=== PATIENT | male | born 1990 | race Caucasian/White ===

== ENCOUNTER → 2023-03-20 07:42 | Outpatient (CLI) | payer BC, SELFPAY ==
--- NOTE | ~2023-03-20 | US_ITS ---
Limited Abdominal Sonogram: Real-time sonographic imaging of the right upper quadrant was performed. Clinical History: Abnormal LFTs Findings: The liver appears echogenic, with no evidence of mass lesion or bile duct dilatation. Main portal vein demonstrates normal direction of flow. The gallbladder is absent, compatible prior christiano cystectomy. The common bile duct measures 5 mm. The visualized pancreas, aorta, and IVC are unremark able. Right kidney measures 11.9 cm in length, without evidence for hydronephrosis. Impression: Diffuse fatty infiltration of liver. Status post cholecystectomy. Reviewed, dictated and finalized at location . Impression: Diffuse fatty infiltration of liver. Status post cholecystectomy.
== END ==
PROVIDERS: PCP Internal Medicine; Visit Provider Internal Medicine
DX: R94.5 Abnormal results of liver function studies (principal); Z90.49 Acquired absence of other specified parts of digestive tract; K76.0 Fatty (change of) liver, not elsewhere classified
CPT/HCPCS: 76705

== ENCOUNTER 2024-02-12 08:19 | Observation (INO) | payer BC, SELFPAY ==
[2024-02-12] VITALS (25 sets, daily range): BP systolic 92–144; BP diastolic 50–96; PULSE 100–152; RESP 11–28; TEMP 36.2–37.1; O2SAT 98–100; BMI 32.1
--- NOTE | ~2024-02-12 | XR_ITS ---
EXAMINATION: XR abdomen gastric tube insert DATE: 02/12/2024 10:39 INDICATION: Nasogastric tube placement. TECHNIQUE: An upright view of the abdomen was obtained. COMPARISON: CT abdomen and pelvis 02/12/2024 FINDINGS: The lower abdomen is excluded. There are no dilated loops of bowel. The nasogastric tube ti p is in the stomach. IMPRESSION: 1. Nasogastric tube tip in the stomach. Reviewed, dictated and finalized at location A.
--- NOTE | ~2024-02-12 | CT_ITS ---
EXAMINATION: CT abdomen pelvis w con DATE: 02/12/2024 10:08 INDICATION: Abdominal pain. Blood in stool. TECHNIQUE: Computed tomography (CT) of the abdomen and pelvis was performed with 100 mL Omnipaque 350 intravenous contrast. Automated exposure control and iterative reconstruction technique were employe d. The dose-length product was 1038.18 mGy-cm. COMPARISON: None. FINDINGS: The visualized portions of the lung bases demonstrate mild atelectasis. No pleural effusion . The heart size is normal. No pericardial effusion. There is diffuse hepatic steatosis. There are ch anges of cholecystectomy. The spleen, pancreas, adrenal glands, and kidneys are normal. There are no dilated loops of bowel. The appendix is normal. There are no pathologically enlarged lymph nodes. The re is no free intraperitoneal fluid. There is a right inguinal hernia containing fat. There is mild l umbar spondylosis. IMPRESSION: 1. Right inguinal hernia containing fat. 2. Diffuse hepatic steatosis. Reviewed, dictated and finalized at location A.
--- NOTE | 2024-02-12 08:59 | ED.GENADULT ---
HPI - General Adult General Chief complaint: GI Bleed Stated complaint: blood in stool x 36 hours Time Seen by Provider: 02/12/24 08:33 History of Present Illness HPI narrative: Patient 33-year-old gentleman who presents emergency department with chief complaint of GI bleeding. Patient has prior history of esophageal strictures and reports that he has had endoscopies before for food impactions and Geo the patient reports that recently had a piece of steak got stuck that he was able to clear then the patient notice that he had a feeling of food getting stuck that ultimately passed with vomiting patient states since then he started having black stool and feeling very weak the patient reports that he vomited black coffee-ground material earlier today Related Data Allergies Allergy/AdvReac Type Severity Reaction Status Date / Time No Known Allergies Allergy Verified 02/12/24 09:00 Review of Systems Review of Systems: A 10 system review of systems was completed on the patient and is negative except for what is stated in the HPI. Nursing and ancillary documentation was reviewed. Exam Narrative: GENERAL: Well-appearing, well-nourished, and in no acute distress. HEAD: Normocephalic, atraumatic. EYES: PERRLA and EOMI. ENT: Nares clear, no rhinorrhea or epistaxis. Mucous membranes moist. NECK: Supple. CHEST: Clear to auscultation. No respiratory distress. HEART: Tachycardic rate and regular rhythm. No murmur heard. Normal peripheral pulses. ABDOMEN: Soft, nontender, nondistended, normal active bowel sounds. : Black guaiac-positive stool EXTREMITIES: Normal range of motion. No edema. SKIN: Warm, dry, no rash. NEURO: No focal deficits. Alert and oriented x3. PSYCH: Normal mood and affect. Course Vital Signs Vital signs: Vital Signs Temperature 36.4 C L 02/12/24 08:41 Pulse Rate 135 H 02/12/24 08:41 Respiratory Rate 20 02/12/24 08:41 Blood Pressure 125/96 H 02/12/24 08:41 Pulse Oximetry 98 02/12/24 08:41 Temperature 36.4 C L 02/12/24 08:41 Pulse Rate 123 H 02/12/24 09:33 Respiratory Rate 13 02/12/24 09:33 Blood Pressure 140/93 H 02/12/24 09:15 Pulse Oximetry 100 02/12/24 09:33 Medical Decision Making [facility] Narrative Medical decision making narrative: Differential diagnosis includes lower GI bleed, upper GI bleed, gastritis, colitis Laboratory studies were obtained on the patient showed white count of 15.0 hemoglobin was 14.4 electrolytes showed a CO2 of 18 anion gap of 15 BUN was 40 and creatinine is 1.0 lactic acid was 3.2 bilirubin was normal at 1.2 CT scan of the abdomen pelvis showed some hepatic steatosis but otherwise no acute abnormalities Patient is guaiac positive his received 2 L of IV fluids in the emergency department given 80 mg of Protonix. The case was discussed with GI who will consult on the patient the case was discussed with the hospitalist who will admit the patient. Vital Signs Vital Signs: Vital Signs Temperature 36.4 C L 02/12/24 08:41 Pulse Rate 135 H 02/12/24 08:41 Respiratory Rate 20 02/12/24 08:41 Blood Pressure 125/96 H 02/12/24 08:41 Pulse Oximetry 98 02/12/24 08:41 Temperature 36.4 C L 02/12/24 08:41 Pulse Rate 123 H 02/12/24 09:33 Respiratory Rate 13 02/12/24 09:33 Blood Pressure 140/93 H 02/12/24 09:15 Pulse Oximetry 100 02/12/24 09:33 Lab Data 02/12/24 08:59 02/12/24 08:59 Labs: Lab Results 02/12/24 Range/Units 08:59 WBC 15.0 H (4.5-10.0) K/mm3 RBC 4.87 (4.6-6.20) M/mm3 Hgb 14.4 (14.0-18.0) g/dL Hct 41.3 L (42.0-52.0) % MCV 84.8 (80-100) fl MCH 29.6 (26-34) pg MCHC 34.9 (32-36) g/dl RDW 12.9 (11.5-14.5) % Plt Count 485 H D (150-375) k/mm3 MPV 9.9 (7.4-10.4) fl Immature Gran % (Auto) 0.5 (0-0.5) % Neut % (Auto) 68.6 (45.5-73.1) % Lymph % (Auto) 26.8 (18.3-44.2) % Esmeralda % (Auto) 3.7 (2.6-8.5) % Eos % (Auto) 0.1
[2024-02-12] MEDS: ONDANSETRON INJ 4 MG/2 ML VIAL IV PUSH (09:01)
[2024-02-12] MEDS: PANTOPRAZOLE SODIUM IV 40 MG VIAL 80 MG IV PUSH (09:01)
[2024-02-12] MEDS: SODIUM CHLORIDE 0.9% IV 1,000 ML 999 ML IV CONT ×2 (09:01→10:14)
[2024-02-12] MEDS: Please add drug allergy info to patient profile. 1 EACH XX (09:01)
[2024-02-12 09:07] LABS: Basophils Absolute Auto 0.1 K/mm3 (0.0-0.1); Basophils Percent Auto 0.3 % (0.2-1.2); Eosinophils Percent Auto 0.1 % (0-4.4); Hematocrit 41.3 % (42.0-52.0); Hemoglobin 14.4 g/dL (14.0-18.0); Immature Granulocyte Absolute 0.08 K/mm3 (0.00-0.031); Immature Granulocyte Percent A 0.5 % (0-0.5); Lymphocytes Absolute Auto 4.02 K/mm3 (0.9-3.2); Lymphocytes Percent Auto 26.8 % (18.3-44.2); Mean Corpuscular HGB Conc 34.9 g/dl (32-36); Mean Corpuscular Hemoglobin 29.6 pg (26-34); Mean Corpuscular Volume 84.8 fl (80-100); Mean Platelet Volume 9.9 fl (7.4-10.4); Monocytes Absolute Auto 0.6 K/mm3 (0.1-0.6); Monocytes Percent Auto 3.7 % (2.6-8.5); Neutrophils Absolute Auto 10.3 K/mm3 (1.3-6.7); Neutrophils Percent Auto 68.6 % (45.5-73.1); Platelet Count Result 485 k/mm3 (150-375); Red Blood Count 4.87 M/mm3 (4.6-6.20); Red Cell Distribution Width 12.9 % (11.5-14.5)
[2024-02-12 09:17] LABS: Lactic Acid Reflex 3.2 mmol/L (0.7-2.0)
[2024-02-12 09:18] LABS: Alanine Aminotransferase 56 U/L (6-50); Albumin Level 4.5 g/dL (3.5-5.1); Alkaline Phosphatase 57 U/L (38-126); Anion Gap 15 mmol/L (4-12); Aspartate Amino Transferase 23 U/L (17-59); Bilirubin,Total 1.2 mg/dL (0.2-1.3); Blood Urea Nitrogen 41 mg/dL (9-20); Calcium 9.1 mg/dL (8.4-10.2); Carbon Dioxide 18 mmol/L (22-30); Chloride 110 mmol/L (98-107); Estimated CRCL calculation 117 ml/min; Estimated Glomerular Filt Rate > 60; Glucose 155 mg/dL (65-110); Sodium 143 mmol/L (137-145)
[2024-02-12 09:19] LABS: Partial Thromboplastin Time 27.5 Seconds (22.3-36.8)
--- NOTE | 2024-02-12 10:10 | PC.NURSE ---
update given to jayjay in GI lab.
[2024-02-12] MEDS: SODIUM CHLORIDE 0.9% IV 1,000 ML 125 ML IV CONT ×2 (10:50→20:05)
--- NOTE | 2024-02-12 11:11 | PC.NURSE ---
Jg in GI lab aware of bed assignment
--- NOTE | 2024-02-12 11:43 | ADMGEN ---
This patient, Reece Craven, was admitted to IMU Room 202- at 1124. Patient/family oriented to hospital policies and general routines including ID bracelet, bed and alarms, visiting hours, pain management, procedures, bathroom and other care routines, personal items, smoking policy, room service/diet, and visiting hours. Information on how to activate the Rapid Response Team has been discussed. Patient/Family are encouraged to report perceived risks to care and to ask questions if they do not understand what they are told or what they should do.
[2024-02-12 12:04] LABS: Reflex Lactic Acid Yes or No Add Lactic
--- NOTE | 2024-02-12 12:21 | WPDANESEPPF ---
Anes - Initial Pre Proc Eval Procedure: Operation Date: 02/12/24 17:00 Proposed Procedures p Esophagogastroduodenoscopy - Walter Magallanes MD Date/Time: 02/12/24 12:21 Surgeon: Nicolas Biswas MD Pre Op Diagnosis: GI Bleed Patient Data Age: 33 Gender: M Height: 1.83 m Weight: 107.4 kg Last Vital Signs Temp 98.8 F 02/12/24 12:00 Pulse 132 H 02/12/24 12:00 Resp 16 02/12/24 12:00 BP 126/86 02/12/24 12:00 Pulse Ox 100 02/12/24 12:00 O2 Del Method Room Air 02/12/24 12:00 Allergies Allergy/AdvReac Type Severity Reaction Status Date / Time No Known Allergies Allergy Verified 02/12/24 12:20 Home Medications Medication Instructions Recorded Confirmed Type allopurinol 100 mg tablet 100 mg PO DAILY 02/12/24 02/12/24 History propranolol 60 mg capsule,24 60 mg PO DAILY 02/12/24 02/12/24 History hr,extended release Laboratory Tests 02/12/24 08:59 WBC 15.0 H K/mm3 (4.5-10.0) RBC 4.87 M/mm3 (4.6-6.20) Hgb 14.4 g/dL (14.0-18.0) Hct 41.3 L % (42.0-52.0) MCV 84.8 fl (80-100) MCH 29.6 pg (26-34) MCHC 34.9 g/dl (32-36) RDW 12.9 % (11.5-14.5) Plt Count 485 H D k/mm3 (150-375) MPV 9.9 fl (7.4-10.4) Immature Gran % (Auto) 0.5 % (0-0.5) Neut % (Auto) 68.6 % (45.5-73.1) Lymph % (Auto) 26.8 % (18.3-44.2) [place] % (Auto) 3.7 % (2.6-8.5) Eos % (Auto) 0.1 % (0-4.4) Baso % (Auto) 0.3 % (0.2-1.2) Lymph # (Auto) 4.02 H K/mm3 (0.9-3.2) [place] # (Auto) 0.6 K/mm3 (0.1-0.6) Eos # (Auto) 0.0 K/mm3 (0-0.3) Baso # (Auto) 0.1 K/mm3 (0.0-0.1) Abs Immat Gran (auto) 0.08 H K/mm3 (0.00-0.031) Absolute Neuts (auto) 10.3 H K/mm3 (1.3-6.7) Absolute Nucleated RBC 0.000 K/mm3 (0.0-0.012) Nucleated RBC % 0.0 % (0.0-0.2) PT 14.0 Seconds (11.1-14.7) INR 1.0 APTT 27.5 Seconds (22.3-36.8) Sodium 143 mmol/L (137-145) Potassium 4.0 mmol/L (3.4-5.0) Chloride 110 H mmol/L (98-107) Carbon Dioxide 18 L mmol/L (22-30) Anion Gap 15 H mmol/L (4-12) BUN 41 H D mg/dL (9-20) Creatinine 1.00 mg/dL (0.7-1.3) Estim Creat Clear Calc 117 ml/min Estimated GFR > 60 (59 - ) Glucose 155 H mg/dL (65-110) Lactic Acid 3.2 H mmol/L (0.7-2.0) Calcium 9.1 mg/dL (8.4-10.2) Total Bilirubin 1.2 mg/dL (0.2-1.3) AST 23 U/L (17-59) ALT 56 H U/L (6-50) Alkaline Phosphatase 57 U/L (38-126) Total Protein 7.0 g/dL (6.3-8.2) Albumin 4.5 g/dL (3.5-5.1) Blood Type A Positive Antibody Screen Negative Patient hx anesthesia problems: none Family hx anesthesia problems: none Results Review: All pre-operative results and documents have been reviewed as part of the pre-operative evaluation. [facility] Social History Social History Smoking status: Never smoker Alcohol intake: current Drinks per week: 18 Substance use: never Substance use type: does not use Do You Feel Safe in your Home?: Yes Lack of Transportation: No Lack of Food: Never True Current Housing: I Have Housing Concerned About Future Housing: No Difficulty Paying Gas/Electric Bills: No Difficulty Paying for Meds: No Currently Unemployed: No Education: Master's Degree or Higher Difficulty w/ Childcare or Family Care: No Spiritual care concerns: No Anes - Eval Final PreProcedure Day of Procedure 02/12/24 12:21 Patient weight: obese Heart: regular rate and rhythm Lungs: clear to auscultation Airway: Mallampati scale class II Neurological: alert and oriented Last oral intake: >/= 8 hours ASA classification: III Emergent: no Anesthetic plan: proceed Anesthesia type and monitoring: general GIVS and standard monitoring Results Review: All pre-operative results and documents have been reviewed as ayaka
[2024-02-12] MEDS: LACTATED RINGERS 1,000 ML 150 ML IV CONT (12:27)
--- NOTE | 2024-02-12 12:42 | WPDGICN ---
Assessment and Plan Assessment and plan (1) Acute GI bleeding: Code(s): K92.2 - Gastrointestinal hemorrhage, unspecified Status: Acute Assessment and Plan: will proceed with urgent EGD differential esophagitis, ulcer, tear, etc more recommendations after egd (2) Melena: Code(s): K92.1 - Melena Status: Acute Assessment and Plan: here with gib and dehydration iv protonix, monitor for more signs of bleeding and trend h/h (3) Coffee ground emesis: Code(s): K92.0 - Hematemesis Status: Acute (4) Alcohol abuse: Code(s): F10.10 - Alcohol abuse, uncomplicated Status: Acute Assessment and Plan: last couple of days drinking more thiamine, supportive care (5) Eosinophilic esophagitis: Code(s): K20.0 - Eosinophilic esophagitis Status: Acute Assessment and Plan: known diagnosis he is not taking ppi right now (6) Nausea and vomiting in adult: Code(s): R11.2 - Nausea with vomiting, unspecified Status: Acute (7) Dehydration: Code(s): E86.0 - Dehydration Status: Acute Assessment and Plan: treated, ivf admission to hospital (8) Leukocytosis: Code(s): D72.829 - Elevated white blood cell count, unspecified Status: Acute GI Consult Note Consult date/time: 02/12/24 12:42 Reason for consult: melena, eoe, n/v HPI: Reece Craven is a 33 year old male with known history EoE last EGD 2018, he had food bolus in the past in fact last time 5 days ago after ate steak, food got stuck for almost 2 hours and eventually passed, did not have to go to ER. Thursday started vacation at home and started drinking- normally he drinks more than he should but only weekends, denies much of drinking during regular days- had some discomfort after eating again then noted dark tarry stool, became dizzy and lightheaded, yesterday did not eat or drink and also had one episode of coffee ground emesis, finally came to ER. He has not been taking his protonix at home. ER evaluation with dehydration, elevated BUN, ALT and leukocytosis, also lactic acidosis. Started on iv protonix, NPO status. Review of Systems Constitutional: Constitutional: Denies chills Eyes: Eyes: Denies blurry vision ENT: Reports Normal hearing present, Denies headache(s) and Denies neck pain Cardiovascular: Cardiovascular: Denies chest pain and Denies dyspnea Respiratory: Respiratory: Denies dyspnea Gastrointestinal: Gastrointestinal: Reports melena, Reports nausea, Reports vomiting and Reports hematemesis Genitourinary: Genitourinary: Denies dysuria Musculoskeletal: Musculoskeletal: Denies neck pain Integumentary/Breasts: Skin/Breast: Denies dry skin Neurologic: Reports Normal hearing present, Denies headache(s) and Denies weakness Psychiatric: Psychiatric: Denies anxiety Endocrine: Endocrine: Denies change in body appearance Hematologic/Lymphatic: Hematologic/Lymphatic: Denies easy bleeding Allergic/Immunologic: Allergic/Immunologic: Denies urticaria PMFSH Past Medical History Medical History (Updated 02/12/24 @ 13:24 by Walter Magallanes MD) Alcohol abuse Coffee ground emesis Dehydration Eosinophilic esophagitis Leukocytosis Melena Nausea and vomiting in adult Social History Social History Smoking status: Never smoker Alcohol intake: current Drinks per week: 18 Substance use: never Substance use type: does not use Do You Feel Safe in your Home?: Yes Lack of Transportation: No Lack of Food: Never True Current Housing: I Have Housing Concerned About Future Housing: No Difficulty Paying Gas/Electric Bills: No Difficulty Paying for Meds: No Currently Unemployed: No Education: Master's Degree or Higher Difficulty w/ Childcare or Family Care: No Spiritual care concerns: No Meds Home Medications and Allergies Home Medi
--- NOTE | 2024-02-12 13:47 | PM.IMHP ---
H&P: HPI History of Present Illness Date/Time: 02/12/24 13:47 Chief Complaint: Blood in Stool Narrative: 33 y/o M presents here with blood in his stool with PMH of esophageal strictures, eosinophilic esophagitis, alcohol abuse, and HTN. The patient presents here from home for further evaluation of GI bleeding. He reports onset of black/tarry stools started morning (02/10). [place] dizzy and diaphoretic overnight. Accompanied by coffee ground emesis starting today around 0730am. Has hx of esophageal strictures and food impactions requiring endoscopic intervention x1 with dilation. Most recent impaction on 02/06 (5 days ago) where he had a piece of steak become impacted, lasted for 2-2.5 hours, and eventually passed without intervention. Typically treats impactions with small sips of water or coke, occasionally will force himself to vomit it up. Concerned tear may be result of this. Did not seek medical care at that time. Does drink alcohol regularly - reports 15-18 alcoholic beverages per week, typically isolated to the weekend. Initial VS at presentation: 97.5? F, HR 135, RR 20, 125/96, and 98% on RA ED workup showed: WBC 15, hemoglobin 14.4, normal coags, gap 15, creatinine 1.0 and GFR >60, glucose 155, lactic 3.2, ALT 56. CT of the abdomen pelvis showed right inguinal hernia containing fat and diffuse hepatic steatosis. Abdominal x-ray confirmed NG tube placement. Review of Systems Review of Systems: All systems reviewed & are unremarkable except as noted in HPI and below [facility] Past Medical History Medical History (Updated 02/12/24 @ 20:44 by Jigna Marquez APRN) Alcohol abuse Coffee ground emesis Eosinophilic esophagitis HTN (hypertension) Melena Social History Social History Smoking status: Never smoker Alcohol intake: current Drinks per week: 18 Substance use: never Substance use type: does not use Do You Feel Safe in your Home?: Yes Lack of Transportation: No Lack of Food: Never True Current Housing: I Have Housing Concerned About Future Housing: No Difficulty Paying Gas/Electric Bills: No Difficulty Paying for Meds: No Currently Unemployed: No Education: Master's Degree or Higher Difficulty w/ Childcare or Family Care: No Spiritual care concerns: No Meds Home Medications and Allergies Home Medications Medication Instructions Recorded Confirmed Type allopurinol 100 mg tablet 100 mg PO DAILY 02/12/24 02/12/24 History propranolol 60 mg capsule,24 60 mg PO DAILY 02/12/24 02/12/24 History hr,extended release Allergies Allergy/AdvReac Type Severity Reaction Status Date / Time No Known Allergies Allergy Verified 02/12/24 12:20 Vital Signs Vital Signs - 24 hr 02/12/24 08:41 02/12/24 08:54 02/12/24 09:08 Temperature 97.5 F L Pulse Rate 135 H 138 H 126 H Respiratory Rate 20 28 H 14 Blood Pressure 125/96 H Pulse Oximetry 98 99 100 Oxygen Delivery 02/12/24 09:15 02/12/24 09:16 02/12/24 09:33 Temperature Pulse Rate 120 H 119 H 123 H Respiratory Rate 14 14 13 Blood Pressure 140/93 H Pulse Oximetry 100 100 100 Oxygen Delivery 02/12/24 10:11 02/12/24 10:12 02/12/24 10:27 Temperature Pulse Rate 115 H 117 H 152 H Respiratory Rate 16 11 L 16 Blood Pressure 128/82 Pulse Oximetry 100 100 Oxygen Delivery 02/12/24 10:30 02/12/24 10:31 02/12/24 10:45 Temperature Pulse Rate 134 H 137 H 119 H Respiratory Rate 15 17 20 Blood Pressure 135/96 H Pulse Oximetry 100 100 Oxygen Delivery 02/12/24 10:46 02/12/24 11:12 02/12/24 12:00 Temperature Pulse Rate 127 H 125 H Respiratory Rate 15 15 Blood Pressure 138/91 H Pulse Oximetry 100 Oxygen Delivery Room Air 02/12/24 12:00 02/12/24 12:00 02/12/24 12:23 Temperature 98.8 F 97.6 F Pulse Rate 128 H 132 H 127 H Respiratory Rate 16 19 Blood Pressure 126/86 136/88 Pulse Oximetry 10
[2024-02-12 15:23] LABS: Lactic Acid 2.4 mmol/L (0.7-2.0)
[2024-02-12] MEDS: SUCRALFATE SUSP 100 MG/ML 10 ML UDC 1000 MG PO ×2 (15:50→20:04)
[2024-02-12 15:56] LABS: Hematocrit 32.6 % (42.0-52.0); Hemoglobin 11.4 g/dL (14.0-18.0)
[2024-02-12] MEDS: PANTOPRAZOLE SODIUM IV 40 MG VIAL IV PUSH (20:04)
[2024-02-12 21:09] LABS: Hematocrit 30.4 % (42.0-52.0); Hemoglobin 10.3 g/dL (14.0-18.0)
[2024-02-13] VITALS (7 sets, daily range): BP systolic 135–138; BP diastolic 67–73; PULSE 84–96; RESP 16–18; TEMP 36.4–36.6; O2SAT 97–100
[2024-02-13] MEDS: SODIUM CHLORIDE 0.9% IV 1,000 ML 125 ML IV CONT (03:47)
[2024-02-13 03:56] LABS: Hematocrit 33.7 % (42.0-52.0); Hemoglobin 10.9 g/dL (14.0-18.0)
[2024-02-13 04:11] LABS: Hemoglobin A1C 4.7 % (<5.7)
[2024-02-13 04:16] LABS: Alanine Aminotransferase 45 U/L (6-50); Albumin Level 3.7 g/dL (3.5-5.1); Alkaline Phosphatase 51 U/L (38-126); Anion Gap 7 mmol/L (4-12); Aspartate Amino Transferase 27 U/L (17-59); Bilirubin,Total 0.7 mg/dL (0.2-1.3); Blood Urea Nitrogen 19 mg/dL (9-20); Calcium 8.5 mg/dL (8.4-10.2); Carbon Dioxide 23 mmol/L (22-30); Chloride 111 mmol/L (98-107); Estimated CRCL calculation 129 ml/min; Estimated Glomerular Filt Rate > 60; Glucose 90 mg/dL (65-110); Magnesium 1.8 mg/dL (1.6-2.3); Potassium 3.8 mmol/L (3.4-5.0); Sodium 141 mmol/L (137-145)
[2024-02-13] MEDS: SUCRALFATE SUSP 100 MG/ML 10 ML UDC 1000 MG PO (06:41)
[2024-02-13] MEDS: PANTOPRAZOLE SODIUM IV 40 MG VIAL IV PUSH (09:19)
[2024-02-13] MEDS: allopurinoL 100 MG TABLET PO (09:19)
[2024-02-13] MEDS: PROPRANOLOL HCL 60 MG CAPSULE CR PO (09:19)
--- NOTE | 2024-02-13 09:43 | PM.DS ---
DS: Admitting Diagnosis Discharge Date 02/13/2024 Admitting Diagnosis blood in the stool DS: Discharge Diagnosis Discharge Diagnosis (1) Odalys-Wright tear: Code(s): K22.6 - Gastro-esophageal laceration-hemorrhage syndrome Status: Acute DS: Summary Hospital Course Hospital Course: patient presented with blood in his stool with PMH of esophageal stricture, patient large bolus lodge in his, patient was seen by GI had EGD, was found to have Odalys-Wright tear, now clinically stable, started patient on Protonix and carafate, will follow up his GI and Primary care provider Time Spent with Patient Time attestation: Total time spent providing and/or coordinating discharge services: Exam Narrative: Patient is comfortable, NAD HEENT: eyes are clear and none icteric LUNGS:CTA HEART: RR S1S2 ABD: BS+, Soft and nontender Lower extremities: no edema SKIN: nonjaundiced Neuro: grossly intact. DS: Data Data Completed and Pending Pending studies at discharge: Pending at discharge 02/12/24 12:49 Surgical [PTH] Routine Labs on day of discharge: Labs from last 24 hours 02/13/24 02/12/24 02/12/24 03:33 21:04 15:51 Hgb 10.9 L 10.3 L 11.4 L D Hct 33.7 L 30.4 L 32.6 L Sodium 141 Potassium 3.8 Chloride 111 H Carbon Dioxide 23 Anion Gap 7 BUN 19 D Creatinine 0.90 Estim Creat Clear Calc 129 Estimated GFR > 60 Glucose 90 Hemoglobin A1c 4.7 Lactic Acid Calcium 8.5 Magnesium 1.8 Total Bilirubin 0.7 AST 27 ALT 45 Alkaline Phosphatase 51 Total Protein 6.0 L Albumin 3.7 Blood Type Antibody Screen 02/12/24 02/12/24 15:01 08:59 Hgb Hct Sodium Potassium Chloride Carbon Dioxide Anion Gap BUN Creatinine Estim Creat Clear Calc Estimated GFR Glucose Hemoglobin A1c Lactic Acid 2.4 H Calcium Magnesium Total Bilirubin AST ALT Alkaline Phosphatase Total Protein Albumin Blood Type A Positive Antibody Screen Negative Discharge Plan Discharge Attending physician on discharge: Jose Manuel Biswas Consulting providers: Walter Magallanes; Jigna Marquez; John Gandhi V.; Lj Gustafson Discharging Clinician: Armaan Denis Patient Disposition: Home, Self-Care Activity: as tolerated Diet: heart healthy Discharge Instructions: patient to follow up with his primary care and GI provider as soon as possible, patient is instructed if any symptoms redevelop to go to nearest ER. Patient Instructions: Sucralfate (By mouth), Pantoprazole (By mouth), Odalys-Wright Syndrome (DC) Stand Alone Forms: General Discharge Information Follow-up/Referrals: Baltazar Chaudhary MD [Primary Care Provider] - Walter Magallanes MD [Physician] - Discharge Medications: New sucralfate 100 mg/mL Suspension 1,000 mg PO ACHS Qty: 500 0RF pantoprazole [Protonix] 40 mg tablet,delayed release (DR/EC) 40 mg PO BID Qty: 28 0RF Continued propranolol 60 mg capsule,extended release 24 hr 60 mg PO DAILY allopurinol 100 mg tablet 100 mg PO DAILY Date of admission: 02/12/24 10:28 Primary Care Provider: Baltazar Chaudhary Admitting Provider: Jose Manuel Biswas Attending physician on admission: Armaan Denis Condition: Stable
--- NOTE | 2024-02-13 11:33 | WPDGIPROGNO ---
Progress Note: A&P Assessment and Plan (1) Odalys-Wright tear: Code(s): K22.6 - Gastro-esophageal laceration-hemorrhage syndrome Status: Acute Assessment and Plan: probably after retching when had food bolus few days ago, also was drinking alcohol ok to go home with ppi and carafate follow-up office in 4-5 weeks (2) Coffee ground emesis: Code(s): K92.0 - Hematemesis Status: Acute (3) Melena: Code(s): K92.1 - Melena Status: Acute (4) Alcohol abuse: Code(s): F10.10 - Alcohol abuse, uncomplicated Status: Acute (5) Dehydration: Code(s): E86.0 - Dehydration Status: Acute (6) Leukocytosis: Code(s): D72.829 - Elevated white blood cell count, unspecified Status: Acute (7) Nausea and vomiting in adult: Code(s): R11.2 - Nausea with vomiting, unspecified Status: Acute (8) Eosinophilic esophagitis: Code(s): K20.0 - Eosinophilic esophagitis Status: Chronic Subjective Date/time seen: 02/13/24 09:20 Interval history: EGD showed MWT, no more bleeding he did ok overnight and ready to go home Review of Systems Review of Systems: All systems reviewed & are unremarkable except as noted in HPI and below Exam Const: General: comfortable and no acute distress HENMT: Face/Nose/Sinus: Normal nares present Eyes: General: appearance normal, both eyes and all related structures Neck: Neck: no JVD Resp: Auscultation: clear to auscultation bilaterally Cardio: Rate: regular rate Rhythm: regular rhythm GI: Inspection: non-distended GI Palp: Yes Soft to palpation and No Tenderness to palpation present (GI) Auscultation: normal bowel sounds Skin: General skin exam: normal color Neuro: General: gait normal Speech: normal speech Extrem: General: normal to inspection Psych: Mental Status: mental status grossly normal Objective Data Vital Signs Vital Signs: Vital Signs - 24 hr 02/12/24 12:00 02/12/24 12:00 02/12/24 12:00 Temperature 98.8 F Pulse Rate 128 H 132 H Respiratory Rate 16 Blood Pressure 126/86 Pulse Oximetry 100 Oxygen Delivery Room Air 02/12/24 12:23 02/12/24 12:50 02/12/24 13:00 Temperature 97.6 F Pulse Rate 127 H 140 H 134 H Respiratory Rate 19 23 H 25 H Blood Pressure 136/88 97/61 L 92/50 L Pulse Oximetry 100 99 99 Oxygen Delivery Room Air Room Air Room Air 02/12/24 13:10 02/12/24 14:00 02/12/24 15:10 Temperature Pulse Rate 118 H 109 H Respiratory Rate 20 Blood Pressure 102/66 Pulse Oximetry 99 Oxygen Delivery Room Air Room Air 02/12/24 16:00 02/12/24 16:00 02/12/24 18:00 Temperature 97.2 F L Pulse Rate 100 115 H 106 H Respiratory Rate 16 Blood Pressure 144/73 H Pulse Oximetry 98 Oxygen Delivery 02/12/24 19:56 02/12/24 20:00 02/12/24 20:00 Temperature 97.8 F Pulse Rate 110 H 106 H Respiratory Rate 18 Blood Pressure 125/68 Pulse Oximetry 99 Oxygen Delivery Room Air 02/12/24 22:00 02/13/24 00:00 02/13/24 00:00 Temperature 97.6 F Pulse Rate 105 H 90 Respiratory Rate 18 Blood Pressure 138/67 Pulse Oximetry 97 Oxygen Delivery Room Air 02/13/24 00:00 02/13/24 01:55 02/13/24 03:17 Temperature Pulse Rate 91 87 Respiratory Rate Blood Pressure Pulse Oximetry Oxygen Delivery Room Air 02/13/24 04:00 02/13/24 04:00 02/13/24 06:00 Temperature 97.6 F Pulse Rate 96 87 84 Respiratory Rate 18 Blood Pressure 135/69 Pulse Oximetry 97 Oxygen Delivery 02/13/24 08:00 02/13/24 08:06 02/13/24 09:19 Temperature 97.8 F Pulse Rate 92 92 Respiratory Rate 16 Blood Pressure 136/73 Pulse Oximetry 100 98 Oxygen Delivery Room Air 02/13/24 08:00 02/13/24 08:00 Temperature Pulse Rate 88 Respiratory Rate Blood Pressure Pulse Oximetry Oxygen Delivery Room Air Intake/Output Intake/Output: Intake & Output 02/10/24 02/11/24 02/12/24
== END 2024-02-13 10:04 | disposition home or self-care (01) ==
LOC: ANHED 10:30 → ANHIMU 20:21
PROVIDERS: Internal Medicine Gastroenterology; Student in an Organized Health Care Education/Training Program; Admitting Provider Internal Medicine; Emergency Provider Emergency Medicine; PCP Internal Medicine; Visit Provider Family Medicine
PROC: 0DJ08ZZ Inspection of Upper Intestinal Tract, Via Natural or Artificial Opening Endoscopic (ICD-10-PCS; CPT 43235; principal; 2024-02-12 17:00)
DX: K22.6 Gastro-esophageal laceration-hemorrhage syndrome (principal); K20.0 Eosinophilic esophagitis; K29.50 Unspecified chronic gastritis without bleeding; F10.10 Alcohol abuse, uncomplicated; E86.0 Dehydration; D72.829 Elevated white blood cell count, unspecified; E66.9 Obesity, unspecified; Z68.32 Body mass index [BMI] 32.0-32.9, adult; Z79.899 Other long term (current) drug therapy
CPT/HCPCS: 43239; 36415; 74177; 80053; 83036; 83605; 83735; 85014; 85018; 85025; 85610; 85730; 86850; 86900; 86901; 88305; 96361; 96374; 96375; 99285; A9270; G0378; J0171; J2405; J2470; J2704; J7030; J7120; Q9967